=== PATIENT | female | born 1980 | race Caucasian/White ===

== ENCOUNTER 2017-09-05 17:10 | Observation (INO) ==
[2017-09-05] MEDS ORDERED: Ondansetron ODT 4 MG TAB.RAPDIS SL ONE (17:38)
[2017-09-05] MEDS ORDERED: 0.9 % Sodium Chloride 1,000 ML IVC SCH ×2 (17:45→20:51)
[2017-09-05 17:47] LABS: Bilirubin,Urine Negative (Negative); Blood,Urine Trace-intact (Negative); Clarity,Urine Slightly Cloudy (Clear); Color,Urine Yellow (Yellow); Glucose,Urine (UA) 500 mg/dL (Normal); Ketones,Urine Negative (Negative); Leukocyte Esterase,Urine Small (Negative); Nitrite,Urine Negative (Negative); Protein,Urine Negative (Neg-Trace); Specific Gravity,Urine <= 1.005 (1.010-1.025); Urobilinogen,Urine Normal (Normal)
[2017-09-05] MEDS ORDERED: Insulin Regular, Human 100 UNIT/ML SQ ONE (17:51)
[2017-09-05 17:52] LABS: Bacteria,Urine Few per hpf (None-Few); Squamous Epithelial Cell,Urine Moderate per lpf (None-Few); WBC,Urine 15-30 per hpf (0-3); Yeast,Urine Few per hpf (None Seen)
[2017-09-05 17:59] LABS: Amphetamine Screen,Urine Negative ng/mL (Cutoff=1000); Barbiturate Screen,Urine Negative ng/mL (Cutoff=200); Benzodiazepines Screen,Urine Negative ng/mL (Cutoff=200); Cannabinoid Screen,Urine Negative ng/mL (Cutoff = 50); Cocaine Screen,Urine Negative ng/mL (Cutoff= 300); Opiate Screen,Urine Negative ng/mL (Cutoff=300); Phencyclidine Screen,Urine Negative ng/mL (Cutoff=25)
--- NOTE | 2017-09-05 18:05 | Emergency Department Note ---
Disposition Clinical Impression: Hyperglycemia, Hyperglycemia due to type 2 diabetes mellitus, Dehydration, IDDM (insulin dependent diabetes mellitus), Tobacco dependence, Abscess of skin or subcutaneous tissue Disposition: Admitted As Inpatient Condition: Fair Referrals: NONE,PCP [Primary Care Provider] - Forms: ED Satisfaction Letter, Work/School Release Time of Disposition: 19:51 (dionne weber [facility]) General Adult HPI - General Chief complaint: ED General Medical Stated complaint: high sugar Time Seen by Provider: 09/05/17 17:19 Source: patient Mode of arrival: ambulatory Limitations: no limitations Nursing Notes Reviewed: Yes Vital Signs Reviewed: Yes - History of Present Illness 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 Denies: confusion, chest pain, cough, diaphoresis, fever/chills, headaches, rash, seizure, shortness of breath, syncope Treatments Prior to Arrival: other (increase in insulin) - Related Data Home Medications Medication Instructions Recorded Confirmed Insulin ASPART [NovoLOG] 18 unit SQ TIDAC PRN 01/16/17 09/05/17 Insulin Glargine,Hum.rec.anlog 40 unit SQ BID 03/07/17 09/05/17 [Lantus Solostar] Allergies Allergy/AdvReac Type Severity Reaction Status Date / Time ketorolac [From Toradol] Allergy Hives Verified 09/05/17 17:12 tramadol [From Ultram] Allergy Anaphylaxis Verified 09/05/17 17:12 iodine Allergy Anaphylaxis Uncoded 09/05/17 17:12 IV Contrast Allergy Anaphylaxis Uncoded 09/05/17 17:12 All systems ED: reviewed and negative except as stated. Review of Systems: As Per HPI Constitutional: Reports: weakness. Denies: fever, chills Eyes: Denies: eye pain, eye discharge ENT ED: Denies: ear pain, throat pain Cardiovascular: Denies: chest pain, palpitations Respiratory: Denies: cough, dyspnea Gastrointestinal: Denies: abdominal pain, nausea, vomiting Genitourinary: Denies: urgency, dysuria, frequency Musculoskeletal: Denies: back pain, neck pain Integumentary: Denies: rash, abrasion, lesions Neurological: Denies: headache Psychiatric: Denies: anxiety, depression Endocrine: Denies: fatigue Hematological/Lymphatic: Denies: easy bleeding Allergic/Immunologic: Denies: facial swelling Past Medical History - Past Medical History Attestation: Yes The following information was validated with the patient. 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 - Social History Smoking Status: Current every day smoker Smokeless Tobacco Status: No Alcohol use: Reports: none Drug use: Reports: none Physical Exam - General Limitations: no limitations General appearance: alert, in no apparent distress, anxious - Head Head exam: atraumatic, normocephalic, normal inspection - Eye Eye exam: Present: normal appearance, PERRL, EOMI - ENT ENT exam: normal exam, normal oropharynx, mucous membranes moist, normal external ear exam - Neck Neck exam: Present: normal inspection, full ROM, trachea midline - Chest Chest inspection: Present: normal inspection, symmetric chest wall rise - Respiratory Respiratory exam: Present: normal lung sounds bilaterally - Cardiovascular Cardiovascular exam: Present: regular rate, normal rhythm, normal heart sounds - Abdominal Exam Abdominal exam: Present: soft, tenderness, distention, normal bowel sounds. Absent: mass, pulsatile mass - Expanded Upper Extremity Exam Shoulder exam: Present: normal inspection, full ROM Arm exam: Present: normal inspection, full ROM Elbow exam: Present: normal inspection, full ROM Forearm/Wrist exam: Present: normal inspection, full ROM Hand exam: Present: normal inspection, full ROM Vascular exam: Normal: capillary refill, radial pulse - Expanded Lower Extremity Exam Hip/Pelvis exam: Present: normal inspection, full ROM Upper leg exam: Present: normal inspection, full ROM Knee exam: Present: normal inspection, full ROM Lower leg exam: Present: normal inspection, full ROM Ankle exam: Present: normal inspection, full ROM Foot/toe exam: Present: normal inspection, full ROM Neurovascular/Tendon exam: Present: normal capillary refill, normal fine/light touch. Absent: motor deficit, sensory deficit, tendon deficit Gait: observed and normal - Back Exam Back exam: Present: normal inspection, full ROM. 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 Soto he is also agreeable I did offer transfer the patient to [facility] where she typically goes but she was comfortable with staying here Vital Signs Temperature 99.6 F 09/05/17 17:13 Pulse Rate 109 09/05/17 17:13 Respiratory Rate 16 09/05/17 17:13 Blood Pressure 131/91 09/05/17 17:13 O2 Sat by Pulse Oximetry 96 09/05/17 17:13 Temperature 99.6 F 09/05/17 17:13 Pulse Rate 97 09/05/17 19:31 Respiratory Rate 18 09/05/17 19:31 Blood Pressure 138/95 09/05/17 19:31 O2 Sat by Pulse Oximetry 97 09/05/17 19:31 Oxygen Delivery Oxygen Delivery Room Air Medical Decision Making - Medical Records Medical records reviewed: Yes I reviewed the patient's medical records. - Lab Data Lab results reviewed: Yes I reviewed the patient's lab results. Result diagrams: 09/05/17 18:50 09/05/17 18:50 Lab Results 09/05/17 09/05/17 09/05/17 Range/Units 17:35 17:35 18:50 WBC 13.7 H (4.3-11.1) K/mcL RBC 3.82 (3.82-4.97) M/mcL Hgb 12.5 (11.5-15.4) g/dL Hct 35.8 (35.3-44.9) % MCV 93.7 D (83.0-100.0) fL MCH 32.7 (28.0-33.3) pg MCHC 34.9 (31.6-35.5) g/dL RDW 13.2 (11.5-14.5) % Plt Count 333 (140-400) K/mcL MPV 11.4 (9.4-12.4) fL Immature Gran % 0.4 (0-4) % Seg Neutrophils % 67.3 % Lymphocytes % 20.5 % Monocytes % 10.3 % Eosinophils % 1.1 % Basophils % 0.4 % Neutrophils # 9.2 H (1.6-8.9) K/mcL Lymphocytes # 2.8 (0.6-4.6) K/mcL Monocytes # 1.4 H (0.0-1.3) K/mcL Eosinophils # 0.2 (0.0-0.6) K/mcL Basophils # 0.1 (0.0-0.2) K/mcL PT (9.4-12.1) Seconds INR APTT (26.0-36.0) Seconds Sodium (136-145) mEq/L Potassium (3.5-4.5) mEq/L Chloride (98-109) mEq/L Carbon Dioxide (19-29) mEq/L BUN (7-20) mg/dL Creatinine (0.57-1.11) mg/dL Est GFR ( Amer) (> 60) Est GFR (Non-Af Amer) (> 60) BUN/Creatinine Ratio (6-26) Glucose (70-99) mg/dL Calculated Osmolality (280-300) Calcium (8.6-10.8) mg/dL Total Bilirubin (0.2-1.2) mg/dL AST (5-34) Units/L ALT (0-55) Units/L Alkaline Phosphatase (38-126) Units/L Serum Total Protein (6.0-8.3) g/dL Albumin (3.5-5.0) g/dL Globulin (2.4-3.5) g/dL Albumin/Globulin Ratio (1.1-2.2) Lipase (8-78) Units/L Beta-Hydroxybutyric Acd (0.02-0.27) mmol/L Urine Color Yellow (Yellow) Urine Clarity Slightly Cloudy A (Clear) Urine pH 6.0 (5.0-8.0) pH Units Ur Specific [place] <= 1.005 L (1.010-1.025) Urine Protein Negative (Neg-Trace) mg/dL Urine Glucose (UA) 500 H (Normal) mg/dL Urine Ketones Negative (Negative) mg/dL Urine Blood Trace-intact H (Negative) Urine Nitrite Negative (Negative) Urine Bilirubin Negative (Negative) Urine Urobilinogen Normal (Normal) mg/dL Ur Leukocyte Esterase Small H (Negative) Urine Microscopic RBC 3-5 H (0-3) per hpf Urine Microscopic WBC 15-30 H (0-3) per hpf Ur Squamous Epith Cells Moderate H (None-Few) per lpf Urine Bacteria Few (None-Few) per hpf Urine Yeast Few H (None Seen) per hpf Ur Culture Indicated? YES A (NO) Urine Opiates Screen Negative (Lgceou=744) ng/mL Ur Oxycodone Screen Negative (Cutoff= 100) ng/mL Ur Barbiturates Screen Negative (Fcxhyt=655) ng/mL Ur Phencyclidine Scrn Negative (Cutoff=25) ng/mL Ur Amphetamines Screen Negative (Zpglbu=1467) ng/mL U Benzodiazepines Scrn Negative (Rezljr=818) ng/mL Urine Cocaine Screen Negative (Cutoff= 300) ng/mL U Marijuana (THC) Screen Negative (Cutoff = 50) ng/mL Ethyl Alcohol (0-10) mg/dL 09/05/17 09/05/17 09/05/17 Range/Units 18:50 18:50 18:50 WBC (4.3-11.1) K/mcL RBC (3.82-4.97) M/mcL Hgb (11.5-15.4) g/dL Hct (35.3-44.9) % MCV (83.0-100.0) fL MCH (28.0-33.3) pg MCHC (31.6-35.5) g/dL RDW (11.5-14.5) % Plt Count (140-400) K/mcL MPV (9.4-12.4) fL Immature Gran % (0-4) % Seg Neutrophils % % Lymphocytes % % Monocytes % % Eosinophils % % Basophils % % Neutrophils # (1.6-8.9) K/mcL Lymphocytes # (0.6-4.6) K/mcL Monocytes # (0.0-1.3) K/mcL Eosinophils # (0.0-0.6) K/mcL Basophils # (0.0-0.2) K/mcL PT 11.5 (9.4-12.1) Seconds INR 1.1 APTT 31.2 (26.0-36.0) Seconds Sodium 134 L (136-145) mEq/L Potassium 4.4 (3.5-4.5) mEq/L Chloride 99 (98-109) mEq/L Carbon Dioxide 23 (19-29) mEq/L BUN 17 (7-20) mg/dL Creatinine 0.84 (0.57-1.11) mg/dL Est GFR ( Amer) > 60 (> 60) Est GFR (Non-Af Amer) > 60 (> 60) BUN/Creatinine Ratio 20 (6-26) Glucose 534 H* (70-99) mg/dL Calculated Osmolality 304 H (280-300) Calcium 9.7 (8.6-10.8) mg/dL Total Bilirubin 1.0 (0.2-1.2) mg/dL AST 17 (5-34) Units/L ALT 19 (0-55) Units/L Alkaline Phosphatase 186 H (38-126) Units/L Serum Total Protein 8.0 (6.0-8.3) g/dL Albumin 3.1 L (3.5-5.0) g/dL Globulin 4.9 H (2.4-3.5) g/dL Albumin/Globulin Ratio 0.6 L (1.1-2.2) Lipase 18 (8-78) Units/L Beta-Hydroxybutyric Acd 0.24 (0.02-0.27) mmol/L Urine Color (Yellow) Urine Clarity (Clear) Urine pH (5.0-8.0) pH Units Ur Specific [place] (1.010-1.025) Urine Protein (Neg-Trace) mg/dL Urine Glucose (UA) (Normal) mg/dL Urine Ketones (Negative) mg/dL Urine Blood (Negative) Urine Nitrite (Negative) Urine Bilirubin (Negative) Urine Urobilinogen (Normal) mg/dL Ur Leukocyte Esterase (Negative) Urine Microscopic RBC (0-3) per hpf Urine Microscopic WBC (0-3) per hpf Ur Squamous Epith Cells (None-Few) per lpf Urine Bacteria (None-Few) per hpf Urine Yeast (None Seen) per hpf Ur Culture Indicated? (NO) Urine Opiates Screen (Fujxwk=588) ng/mL Ur Oxycodone Screen (Cutoff= 100) ng/mL Ur Barbiturates Screen (Uuxgzx=327) ng/mL Ur Phencyclidine Scrn (Cutoff=25) ng/mL Ur Amphetamines Screen (Coyhpi=7217) ng/mL U Benzodiazepines Scrn (Grsxmd=652) ng/mL Urine Cocaine Screen (Cutoff= 300) ng/mL U Marijuana (THC) Screen (Cutoff = 50) ng/mL Ethyl Alcohol < 10 (0-10) mg/dL Critical Care Time Critical Care Time: Yes Total Critical Care Time: 20 Attestation: Patient sugar was greater than 600 when she initially presented in and after obtaining serum that was 594 patient had received 10 units of insulin which did bring down to 440 [place] be slowly hydrated to prevent any further secondary complications as result of receiving the fluids patient's critical care time was 20 minutes as result of the elevated glucose Critical care performed:20 Time is exclusive of separately billable procedures. Time includes: direct patient care, patient reassessment, coordination of patient care, interpretation of data (laboratory data, radiology data, and respiratory data), review of patient's medical records, medical consultation and documentation of patient care. Procedures included in critical care time: Procedures excluded from critical care time:
[2017-09-05 18:57] LABS: Basophils # 0.1 K/mcL (0.0-0.2); Basophils % 0.4 %; Eosinophils # 0.2 K/mcL (0.0-0.6); Eosinophils % 1.1 %; Hematocrit 35.8 % (35.3-44.9); Hemoglobin 12.5 g/dL (11.5-15.4); Immature Granulocytes % 0.4 % (0-4); Lymphocytes # 2.8 K/mcL (0.6-4.6); Lymphocytes % 20.5 %; Mean Corpuscular HGB Conc 34.9 g/dL (31.6-35.5); Mean Corpuscular Hemoglobin 32.7 pg (28.0-33.3); Mean Corpuscular Volume 93.7 fL (83.0-100.0); Mean Platelet Volume 11.4 fL (9.4-12.4); Monocytes # 1.4 K/mcL (0.0-1.3); Monocytes % 10.3 %; Neutrophils # 9.2 K/mcL (1.6-8.9); Platelet Count 333 K/mcL (140-400); Red Blood Count 3.82 M/mcL (3.82-4.97); Red Cell Distribution Width 13.2 % (11.5-14.5); Segmented Neutrophils % 67.3 %
[2017-09-05 19:07] LABS: Activated Partial Thrombo Time 31.2 Seconds (26.0-36.0)
[2017-09-05] MEDS ORDERED: *HR* Morphine 2 MG/ML SYRINGE IVP STA (19:09)
[2017-09-05] MEDS ORDERED: Ondansetron 4 MG/2 ML VIAL IVP STA (19:09)
[2017-09-05 19:16] LABS: Alanine Aminotransferase 19 Units/L (0-55); Albumin 3.1 g/dL (3.5-5.0); Albumin/Globulin Ratio 0.6 (1.1-2.2); Alkaline Phosphatase 186 Units/L (38-126); Aspartate Amino Transferase 17 Units/L (5-34); BUN/Creatinine Ratio 20 (6-26); Blood Urea Nitrogen 17 mg/dL (7-20); Calcium 9.7 mg/dL (8.6-10.8); Carbon Dioxide 23 mEq/L (19-29); Chloride 99 mEq/L (98-109); Globulin 4.9 g/dL (2.4-3.5); Osmolality,Calculated 304 (280-300); Potassium 4.4 mEq/L (3.5-4.5); Sodium 134 mEq/L (136-145); eGFR For African Americans > 60 (> 60); eGFR For Non-African Americans > 60 (> 60)
[2017-09-05 19:17] LABS: Ethanol < 10 mg/dL (0-10); Lipase 18 Units/L (8-78)
[2017-09-05 19:19] LABS: Glucose 534 mg/dL (70-99)
[2017-09-05 19:23] LABS: Beta-Hydroxybutyric Acid 0.24 mmol/L (0.02-0.27)
[2017-09-05 19:31] LABS: Prothrombin Time 11.5 Seconds (9.4-12.1)
[2017-09-05 19:32] LABS: INR 1.1
[2017-09-05 20:05] LABS: Hemoglobin A1C 10.4 %
[2017-09-05] MEDS ORDERED: Insulin LISPRO 300 UNITS/3 ML VIAL SQ PRN (20:51)
[2017-09-05] MEDS ORDERED: Dextrose Gel 15 GM PO PRN ×2 (20:51)
[2017-09-05] MEDS ORDERED: Naloxone 0.4 MG/ML INJ IVP PRN (20:51)
[2017-09-05] MEDS ORDERED: Ondansetron ODT 4 MG TAB.RAPDIS SL PRN (20:51)
[2017-09-05] MEDS ORDERED: *HR* Dextrose 50 % in Water (Syg) 50 ML SYRINGE IVP PRN (20:51)
[2017-09-05] MEDS ORDERED: D5% in Water 1,000 ML IVC PRN (20:51)
[2017-09-05] MEDS ORDERED: Ondansetron 4 MG/2 ML VIAL IVP PRN (20:51)
[2017-09-05] MEDS: *HR* OxyCODONE Immed Rel 5 MG TABLET PO PRN ×2 (21:30→22:15)
[2017-09-05] MEDS: 0.9 % Sodium Chloride 1,000 ML IVC SCH (21:56)
[2017-09-05] MEDS ORDERED: Insulin DETEMIR 100 UNIT/ML per UNIT SQ ONE (22:15)
[2017-09-05] MEDS: Insulin LISPRO 300 UNITS/3 ML VIAL SQ SCH (23:49)
[2017-09-06] MEDS: *HR* OxyCODONE Immed Rel 5 MG TABLET PO PRN ×5 (04:35→23:52)
[2017-09-06 07:46] LABS: Basophils # 0.1 K/mcL (0.0-0.2); Basophils % 0.6 %; Eosinophils # 0.4 K/mcL (0.0-0.6); Eosinophils % 3.3 %; Hematocrit 35.4 % (35.3-44.9); Immature Granulocytes % 0.4 % (0-4); Lymphocytes # 3.5 K/mcL (0.6-4.6); Lymphocytes % 32.7 %; Mean Corpuscular HGB Conc 33.9 g/dL (31.6-35.5); Mean Corpuscular Hemoglobin 32.3 pg (28.0-33.3); Mean Corpuscular Volume 95.4 fL (83.0-100.0); Mean Platelet Volume 11.5 fL (9.4-12.4); Neutrophils # 5.8 K/mcL (1.6-8.9); Platelet Count 286 K/mcL (140-400); Red Blood Count 3.71 M/mcL (3.82-4.97); Red Cell Distribution Width 13.5 % (11.5-14.5)
[2017-09-06] MEDS: Insulin LISPRO 300 UNITS/3 ML VIAL SQ SCH ×4 (08:11→20:31)
[2017-09-06] MEDS: Insulin DETEMIR 100 UNIT/ML X5UNITS SQ SCH ×2 (09:13→20:37)
[2017-09-06 09:21] LABS: BUN/Creatinine Ratio 20 (6-26); Blood Urea Nitrogen 12 mg/dL (7-20); Calcium 8.5 mg/dL (8.6-10.8); Carbon Dioxide 24 mEq/L (19-29); Chloride 108 mEq/L (98-109); Glucose 118 mg/dL (70-99); Osmolality,Calculated 291 (280-300); Potassium 3.8 mEq/L (3.5-4.5); Sodium 140 mEq/L (136-145); eGFR For African Americans > 60 (> 60); eGFR For Non-African Americans > 60 (> 60)
[2017-09-06] MEDS ORDERED: Ondansetron 4 MG/2 ML VIAL IVP PRN (11:12)
--- NOTE | 2017-09-06 11:18 | Internal Med History&Physical ---
Date of Encounter: 09/06/17 Time of Encounter: 10:45 Assessment and Plan (1) Hyperglycemia Current visit: Yes Status: Acute She has been started on IV fluids and her home basal insulin regimen. He checks with SSI have been ordered. (2) UTI (urinary tract infection) Current visit: Yes Status: Acute She was started on Rocephin in emergency room. We will continue this and add lactobacillus. Qualifiers: Urinary tract infection type: site unspecified Hematuria presence: without hematuria Qualified Code(s): N39.0 - Urinary tract infection, site not specified (3) Low TSH level Current visit: Yes Status: Acute We will recheck TSH in a.m. (4) Hyperlipidemia Current visit: Yes Status: Acute We will check lipid profile in a.m. Qualifiers: Hyperlipidemia type: unspecified Qualified Code(s): E78.5 - Hyperlipidemia , unspecified Internal Medicine - H&P: HPI Chief complaint: Abdominal pain and vomiting Admitted From: Home Plans for Post Hospital Care: Home History of present illness: Ms. Lopez is a 36 year old female who came to emergency room stating she had onset of abdominal pain and vomiting the evening of September 01. She states she vomited approximately twice daily since onset. She denies hematemesis, diarrhea, fevers or chills. She was evaluated in emergency room and found to have hyperglycemia and possible UTI. She was admitted to [facility] floor for ongoing care needs. She states she was diagnosed with diabetes at age 29. She is been on insulin essentially since onset of diagnosis. She states her blood sugar readings at home are high and generally greater than 300 mg percent. She states she attempts to follow a diabetic diet generally. She has had several hospitalizations at [facility] in the past 2 years and has had several episodes of DKA. She has left [facility] on at least 2 occasions. She has hyperlipidemia and had suppressed TSH at 0.039 on 05/24/2015. Past Med Surg Social Fam HX - Past Medical History Medical history: asthma, cancer, COPD, diabetes, GERD, hepatitis, renal disease , other Psychiatric history: anxiety, depression - Past Surgical History Surgical History: cholecystectomy - Social History Smoking Status: Current every day smoker Packs per day: 1 Smokeless Tobacco Status: No Alcohol use: none Drug use: none - Family History Mother Living Status: Hx Family Cancer: Yes (breast, lung, brain) Father Living Status: Hx Family Cardiac Disorders: Yes (heart attack) Sister Living Status: Still Living Hx Family Cancer: Yes (breast) Internal Medicine - H&P: Meds Insulin ASPART [NovoLOG] 18 unit SQ TIDAC PRN 01/16/17 [History] Insulin Glargine,Hum.rec.anlog [Lantus Solostar] 50 unit SQ BID 03/07/17 [ History] ALPRAZolam [Xanax 0.5 MG Tablet] 0.5 mg PO BID 09/05/17 [History] Gabapentin [Neurontin] 800 mg PO TID 09/05/17 [History] Oxycodone HCl/Acetaminophen [Percocet 10-325 mg Tablet] 15 each PO Q6H PRN 09/05 [History] 3 Allergy/AdvReac Type Severity Reaction Status Date / Time ketorolac [From Toradol] Allergy Hives Verified 09/05/17 17:12 tramadol [From Ultram] Allergy Anaphylaxis Verified 09/05/17 17:12 iodine Allergy Anaphylaxis Uncoded 09/05/17 17:12 IV Contrast Allergy Anaphylaxis Uncoded 09/05/17 17:12 All Systems PM: A 10-system review of systems was performed and is negative for pertinent findings except as documented above in the HPI. Review of systems: Gen.: Her weight has decreased from 67.585 kg on 05/16/2015 to 56.699 kg on admission now. Cardiovascular: She denies hypertension NE heart failure angina DVT or pulmonary embolus Respiratory: She has smoked since age 14 up to 2 packs per day. She claims a diagnosis COPD and has used oxygen in the past and does not have home oxygen available at the present time. GI: She has been diagnosed with hepatitis B. She had cholecystectomy approximately 2009. She has a diagnosis of chronic pancreatitis. Abdominal CT done several weeks ago during an [facility] admission showed pancreatic calcifications and raised the possibility of diabetic gastroparesis. : She has had kidney stones in the past. She denies other kidney or bladder disorders Neurologic: She denies large distribution strokes or seizures. Endocrine: As per history of present illness Hematology/oncology: She denies blood disorders cancers or anemia Psychiatric: She claims anxiety but denies depression or other mental health issues [place] skeletal: She denies arthritis gout or other bone joint or muscle disorders. - Constitutional Vitals: Temp Pulse Resp BP Pulse Ox 98.4 F 78 18 116/78 95 09/06/17 10:36 09/06/17 10:36 09/06/17 10:36 09/06/17 10:36 09/06/17 10:36 Exam: Gen.: She is a well-developed well-nourished female lying in bed who appears in mild distress at present time and complains of abdominal discomfort. HEENT: Head is atraumatic and normocephalic. Eyes: EOMI. There is no scleral icterus. Mouth: Mucosa is moist. Neck: Supple and nontender. There is no thyromegaly or adenopathy noted. Heart: Regular without murmurs gallops or ectopics Lungs: No wheezes or crackles are heard. Abdomen: Bowel sounds are diminished. There is mild diffuse tenderness without guarding or masses noted. Extremities: There is no cyanosis edema or clubbing noted. Dorsalis pedis and posttibial pulses are 1-2 over 2 bilaterally. She has multiple healed infection /abscess areas on her arms hands and feet. Neurologic: Mental status: She is talkative and a good historian. Cranial nerves: Smile is symmetric. Forehead wrinkles bilaterally. Tongue protrudes midline. EOMI. Motor: There is no pronator drift. Cerebellar: Finger to nose is intact bilaterally. Skin: Warm and dry. She has many tattoos over her body Internal Med - H&P Results - Labs CBC & Chem 7: 09/06/17 07:31 09/06/17 07:31 Labs: Short CBC 09/06/17 Range/Units 07:31 WBC 10.7 (4.3-11.1) K/mcL Hgb 12.0 (11.5-15.4) g/dL Hct 35.4 (35.3-44.9) % Plt Count 286 (140-400) K/mcL Neutrophils # 5.8 (1.6-8.9) K/mcL BMP 09/06/17 07:31 Sodium 140 Potassium 3.8 Chloride 108 Carbon Dioxide 24 BUN 12 Creatinine 0.60 Glucose 118 H Calcium 8.5 L
[2017-09-06] MEDS: 0.45 % Sodium Chloride w/KCl 20 MEQ/1,000 ML MLS IVC SCH (11:54)
[2017-09-06] MEDS: Lactobacillus 1 EACH CAP.SPRINK PO SCH (20:37)
[2017-09-07] MEDS: 0.45 % Sodium Chloride w/KCl 20 MEQ/1,000 ML MLS IVC SCH (04:04)
[2017-09-07] MEDS: *HR* OxyCODONE Immed Rel 5 MG TABLET PO PRN ×3 (04:04→13:14)
[2017-09-07 06:42] LABS: Chol/HDL Ratio 3.7 (0-4.9); Magnesium 1.7 mg/dL (1.6-2.6)
[2017-09-07 07:03] LABS: Thyroid Stimulating Hormone 0.221 mcIU/mL (0.350-4.840)
[2017-09-07] MEDS: Insulin LISPRO 300 UNITS/3 ML VIAL SQ SCH ×2 (07:30→11:44)
[2017-09-07] MEDS: Lactobacillus 1 EACH CAP.SPRINK PO SCH (08:43)
[2017-09-07] MEDS: Insulin DETEMIR 100 UNIT/ML X5UNITS SQ SCH (10:13)
[2017-09-07 13:14] VITALS: BP 111/73
--- NOTE | 2017-09-07 15:31 | Discharge Summary ---
Date of Encounter: 09/07/17 Time of Encounter: 15:15 - Discharge Diagnosis (1) Hyperglycemia Priority: Primary Status: Acute (2) UTI (urinary tract infection) Priority: Secondary Status: Acute Qualifiers: Urinary tract infection type: site unspecified Hematuria presence: without hematuria Qualified Code(s): N39.0 - Urinary tract infection, site not specified (3) Low TSH level Priority: Secondary Status: Acute (4) Hyperlipidemia Priority: Secondary Status: Acute Qualifiers: Hyperlipidemia type: unspecified Qualified Code(s): E78.5 - Hyperlipidemia , unspecified - Discharge Medications Prescriptions: Gabapentin [Neurontin] 800 mg PO TID #42 capsule Insulin Glargine,Hum.rec.anlog [Basaglar Kwikpen U-100] 50 unit SQ BID #3 insuln.pen Insulin LISPRO [HumaLOG] 18 units SQ TIDWM #3 vial Lactobacillus [Culturelle] 1 each PO BID #6 cap.sprink Metoclopramide [Reglan] 5 mg PO ACHS #28 tablet Sulfamethoxazole/Trimeth DS [Bactrim DS] 1 each PO BID #6 tablet Home Medications: Insulin ASPART [NovoLOG] 18 unit SQ TIDAC PRN 01/16/17 [History] Insulin Glargine,Hum.rec.anlog [Lantus Solostar] 50 unit SQ BID 03/07/17 [ History] ALPRAZolam [Xanax 0.5 MG Tablet] 0.5 mg PO BID 09/05/17 [History] Gabapentin [Neurontin] 800 mg PO TID 09/05/17 [History] Oxycodone HCl/Acetaminophen [Percocet 10-325 mg Tablet] 15 each PO Q6H PRN 09/05 [History] Gabapentin [Neurontin] 800 mg PO TID #42 capsule 09/07/17 [Rx] Insulin Glargine,Hum.rec.anlog [Basaglar Kwikpen U-100] 50 unit SQ BID #3 insuln.pen 09/07/17 [Rx] Insulin LISPRO [HumaLOG] 18 units SQ TIDWM #3 vial 09/07/17 [Rx] Lactobacillus [Culturelle] 1 each PO BID #6 cap.sprink 09/07/17 [Rx] Metoclopramide [Reglan] 5 mg PO ACHS #28 tablet 09/07/17 [Rx] Sulfamethoxazole/Trimeth DS [Bactrim DS] 1 each PO BID #6 tablet 09/07/17 [Rx] Allergies/Adverse Reactions: 3 Allergy/AdvReac Type Severity Reaction Status Date / Time ketorolac [From Toradol] Allergy Hives Verified 09/05/17 17:12 tramadol [From Ultram] Allergy Anaphylaxis Verified 09/05/17 17:12 iodine Allergy Anaphylaxis Uncoded 09/05/17 17:12 IV Contrast Allergy Anaphylaxis Uncoded 09/05/17 17:12 Date of admission: 09/05/17 20:23 Primary care physician: Ziyad Mosqueda M.D. - Patient Status Disposition: Home, Self-Care Condition: Fair Functional capacity at discharge: independent ambulation Overall status at discharge: patient is progressing back to baseline - Discharge Instructions - Diet and Activity Activity: resume usual activities as tolerated Diet: diabetic diet Hospital course: Ms. Lopez is a 36 year old female who came to emergency room stating she had onset of abdominal pain and vomiting the evening of September 01. She states she vomited approximately twice daily since onset. She denies hematemesis, diarrhea, fevers or chills. She was evaluated in emergency room and found to have hyperglycemia and possible UTI. She was [facility] floor for ongoing care needs. Initial orders were written by the emergency room physician. I saw her on September 06 and performed a history and physical. She was given IV fluids and started on her home basal insulin regimen. Accu-Cheks with SSI were ordered. She had improvement in her blood sugar. Urine culture returned showing MRSA. She will be given a prescription for Septra DS twice a day for 3 days with lactobacillus. TSH returned improved but still suppressed at 0.221. Her PCP can order further studies as needed. Lipid profile showed cholesterol 138, triglycerides 82, LDL 85, HDL 37, and total/HDL ratio of 3.7 placing her in the moderate CHD risk category. A magnesium level returned normal at 1.7. She was started on Reglan for nausea and possible diabetic gastroparesis. She had clinical improvement and on September 07 felt stable for discharge home. She will follow with her PCP within one week. I encouraged her to discontinue smoking. - Time Spent with Patient Total time spent providing and/or coordinating discharge services: - Constitutional Vitals: Temp Pulse Resp BP Pulse Ox 98.5 F 78 20 111/73 97 09/07/17 13:13 09/07/17 13:13 09/07/17 13:13 09/07/17 13:13 09/07/17 13:13
[2017-09-07] MEDS ORDERED: cefTRIAXone 1,000 MG in Water for inj. (sterile) 10 ML IVP SCH (19:00)
== END 2017-09-07 15:56 | disposition home or self-care (01) ==
LOC: INPPIK 17:10 → EMEROOPIK 17:10 → INPPIK 20:40
PROVIDERS: ADMIT Internal Medicine; ATTEND Internal Medicine